=== PATIENT | female | born 1970 | race Caucasian/White ===

== ENCOUNTER → 2016-12-08 | Outpatient (CLI) | payer OTHER ==
--- NOTE | 2016-12-08 13:55 | RAD ---
DATE: December 08, 2016 EXAM: DIGITAL DIAGNOSTIC LT HISTORY: 6 month follow-up COMPARISON: June 22, 2016 mammogram and ultrasound. Screening mammograms from June 08, 2016 and March 26, 2015. TECHNIQUE: CC, MLO, and ML views are provided. This study was interpreted with the benefit of Computerized Aided Detection (CAD). FINDINGS: The breast parenchyma is heterogeneously dense, category C, which may obscure small masses. There is no worrisome mass or area of architectural distortion. Area of concern on the May exam has similar appearance, no new or enlarging mass apparent. There are no suspicious groupings of microcalcifications. IMPRESSION: Stable mammogram with probably benign findings. BI-RADS CATEGORY: 3 PROBABLE BENIGN-SHORT TERM F/U RECOMMENDED FOLLOW-UP: 6M 6 MONTH FOLLOW-UP . This will be a 6 month follow-up for the left breast as well as annual screening for the contralateral breast. PQRS compliance statement: Patient information was entered into a reminder system with a target due date of June 08, 2017 for the next mammogram. Mammography is a sensitive method for finding small breast cancers, but it does not detect them all and is not a substitute for careful clinical examination. A negative mammogram does not negate a clinically suspicious finding and should not result in delay in biopsying a clinically suspicious abnormality. "Our facility is accredited by the [employer] Mammography [employer]."
== END | disposition home or self-care (01) ==
LOC: MAMMO 12:59
PROVIDERS: ATTEND Specialist
DX: R92.8 Other abnormal and inconclusive findings on diagnostic imaging of breast (principal)
CPT/HCPCS: G0206; 77065

== ENCOUNTER → 2017-08-15 | Outpatient (CLI) | payer OTHER ==
--- NOTE | 2017-08-15 09:46 | RAD ---
DATE: 08/15/2017 EXAM: MAMMO PARAMJIT DIAG BILAT HISTORY: Six-month follow-up left breast density. COMPARISON: 12/08/2016, 06/22/2016, 06/08/2016. This study was interpreted with the benefit of Computerized Aided Detection (CAD). FINDINGS: The parenchymal pattern is stable. Previously noted nodular density in the superior left breast is not visualized. No new mass or malignant appearing microcalcifications are seen. The axillae are unremarkable. Breast Density: HETERO The breast parenchyma is heterogeneously dense, which could reduce sensitivity of mammography. Breast parenchyma level C. IMPRESSION: Stable. No mammographic features suspicious for malignancy are identified. The patient may return to routine annual screening mammography BI-RADS CATEGORY: 1 NEGATIVE RECOMMENDED FOLLOW-UP: 12M 12 MONTH FOLLOW-UP PQRS compliance statement: Patient information was entered into a reminder system with a target due date 08/15/2018 for the next mammogram. Mammography is a sensitive method for finding small breast cancers, but it does not detect them all and is not a substitute for careful clinical examination. A negative mammogram does not negate a clinically suspicious finding and should not result in delay in biopsying a clinically suspicious abnormality. "Our facility is accredited by the [employer] Mammography [employer]."
== END | disposition home or self-care (01) ==
LOC: MAMMO 08:37
PROVIDERS: ATTEND Specialist
DX: R92.8 Other abnormal and inconclusive findings on diagnostic imaging of breast (principal)
CPT/HCPCS: G0204; G0279; 77062; 77066

== ENCOUNTER → 2018-08-16 | Outpatient (CLI) | payer OTHER ==
--- NOTE | 2018-08-16 11:27 | RAD ---
DATE: 08/16/2018 EXAM: MAMMO PARAMJIT SCREENING BILATERAL HISTORY: Routine screening COMPARISON: 08/15/2017 This study was interpreted with the benefit of Computerized Aided Detection (CAD). Breast Density: HETERO The breast parenchyma is heterogenously dense, which could reduce sensitivity of mammography. Breast parenchyma level C. FINDINGS: No new or enlarging breast densities are seen. Tiny radiopacities projected over the right axillary region are probably deodorant related artifacts. No suspicious calcifications are seen within either breast. IMPRESSION: 1. Tiny right axillary radiopacities are probably artifacts. Repeat mammographic imaging of this region following cleansing of the skin is suggested . 2. Otherwise stable mammograms. BI-RADS CATEGORY: 0 INCOMPLETE: NEEDS ADDITIONAL IMAGING EVALUATION AND/OR PRIOR MAMMOGRAMS FOR COMPARISON. RECOMMENDED FOLLOW-UP: ADD ADDITIONAL IMAGING PQRS compliance statement: Patient information was entered into a reminder system with a target due date for the next mammogram. Mammography is a sensitive method for finding small breast cancers, but it does not detect them all and is not a substitute for careful clinical examination. A negative mammogram does not negate a clinically suspicious finding and should not result in delay in biopsying a clinically suspicious abnormality. "Our facility is accredited by the [employer] Mammography [employer]."
== END | disposition home or self-care (01) ==
LOC: MAMMO 08:48
DX: Z12.31 Encounter for screening mammogram for malignant neoplasm of breast (principal)
CPT/HCPCS: 77063; 77067

== ENCOUNTER → 2018-08-30 | Outpatient (CLI) | payer OTHER ==
--- NOTE | 2018-08-30 15:47 | RAD ---
DATE: 08/30/2018 EXAM: DIGITAL DIAGNOSTIC RT HISTORY: Right axillary opacities, possible due to artifacts COMPARISON: 08/16/2018 This study was interpreted with the benefit of Computerized Aided Detection (CAD). Breast Density: HETERO The breast parenchyma is heterogenously dense, which could reduce sensitivity of mammography. Breast parenchyma level C. FINDINGS: Repeat oblique views of the right breast were obtained following cleansing of the skin. The previously visualized punctate radiopacities are no longer present and presumably due to artifacts. IMPRESSION: There is no mammographic evidence of malignancy. BI-RADS CATEGORY: 1 NEGATIVE RECOMMENDED FOLLOW-UP: 12M 12 MONTH FOLLOW-UP PQRS compliance statement: Patient information was entered into a reminder system with a target due date for the next mammogram. Mammography is a sensitive method for finding small breast cancers, but it does not detect them all and is not a substitute for careful clinical examination. A negative mammogram does not negate a clinically suspicious finding and should not result in delay in biopsying a clinically suspicious abnormality. "Our facility is accredited by the [employer] Mammography [employer]."
== END | disposition home or self-care (01) ==
LOC: MAMMO 14:54
DX: R92.8 Other abnormal and inconclusive findings on diagnostic imaging of breast (principal)
CPT/HCPCS: 77065

== ENCOUNTER → 2020-07-22 | Outpatient (CLI) | payer OTHER ==
--- NOTE | 2020-07-22 11:36 | RAD ---
BILATERAL SCREENING MAMMOGRAM, 3-D History: Routine screening. Comparison: 08/16/2018, 08/15/2017, 06/08/2016, 03/26/2015. Technique: MLO and CC digital tomosynthesis (3D) images obtained. Radiologist reviewed these images on dedicated workstation. Findings: Breast Tissue Density C : The breasts are heterogeneously dense, which may obscure small masses. There are no dominant masses, suspicious microcalcifications, or architectural distortion. IMPRESSION: No mammographic evidence of malignancy. Recommend routine screening. BI-RADS category 1: Negative. The images were reviewed with computer-aided detection. Patient information is entered into reminder system with a target due date for the next screening mammogram. Mammography is the most sensitive method for finding small breast cancers, but it does not detect them all and is not a substitute for careful clinical examination. A negative mammogram does not negate a clinically suspicious finding and should not result in delay in biopsying a clinically suspicious abnormality. "Our facility is accredited by the [employer] Mammography [employer]." Electronically signed by: Federico De Leon MD (07/22/2020 11:32 AM) [id number]
== END ==
LOC: MAMMO 09:44
PROVIDERS: ATTEND Family Medicine
DX: Z12.31 Encounter for screening mammogram for malignant neoplasm of breast (principal)
CPT/HCPCS: 77063; 77067

== ENCOUNTER → 2021-11-17 | Outpatient (CLI) | payer OTHER ==
--- NOTE | 2021-11-17 15:16 | RAD ---
EXAMINATION: MG BILAT SCREEN+PARAMJIT CLINICAL HISTORY: Screening mammogram TECHNIQUE: Digital craniocaudal and mediolateral oblique views of the bilateral breasts obtained with 3-D tomosynthesis. COMPARISON: 07/22/2020, 08/30/2018, 08/16/2018, 08/15/2017, 12/08/2016 BREAST COMPOSITION: The breasts are heterogeneously dense, which may obscure small masses. FINDINGS: No evidence of suspicious mass, calcifications, or areas of architectural distortion. IMPRESSION: No mammographic evidence of malignancy. BI-RADS ASSESSMENT: Category 1: Negative RECOMMENDATION: Return for routine bilateral screening mammogram in one year. PQRS compliance statement - Patient information was entered into a reminder system with a target due date for the next mammogram. "Our facility is accredited by the [employer] Mammography [employer]." Electronically signed by: Edd Gambino DO (11/17/2021 3:13 PM) [id number]
== END ==
LOC: MAMMO 13:34
PROVIDERS: ATTEND Nurse Practitioner Family
DX: Z12.31 Encounter for screening mammogram for malignant neoplasm of breast (principal)
CPT/HCPCS: 77063; 77067